=== PATIENT | female | born 1955 | race Two or more races ===

== ENCOUNTER 2018-11-20 14:44 | Inpatient (IN) | payer OTHER ==
[~2018-11-20] VITALS: Ht 160 cm; Wt 88.5 kg
[~2018-11-20 14:44] MED LIST: BENA40TA8 PO; CITA10SO3 PO; GLIP10TA11 PO; PANT40TA2 PO; SUCR1TAB31 PO; TRAM50TA PO; ZOLP10TA2 PO
--- NOTE | 2018-11-20 14:57 | NUR ---
ALTAF DE SANTIAGO VIA [facility]. TO ER BED 12. AAOX4. NO RESP DISTRESS, NO SOB, DENIES CP. CAME IN FOR GLF WITH R HIP AND R LEG PAIN 05/14. AWAITING MD KEENAN
[2018-11-20] MEDS ORDERED: ONDANSETRON HCL/PF 4 MG/2 ML VIAL ONE (15:11)
[2018-11-20] MEDS ORDERED: MORPHINE SULFATE INJ 2 MG/ML DISP.SYRIN ONE ×2 (15:11→20:31)
--- NOTE | 2018-11-20 15:20 | NUR ---
IV ACCESS OBTAIN ON R AC 20G. OLIMPIA DRAWN, TORCH CUTTER AT BEDSIDE.
[2018-11-20 15:24] LABS: BASOPHILS # (AUTO) 0.1 /CMM (0.0-0.2); BASOPHILS % (AUTO) 0.6 % (0.0-2.0); EOSINOPHILS % (AUTO) 1.9 % (0.0-6.0); HEMATOCRIT 41 % (33-45); HEMOGLOBIN 13.9 g/dL (11.5-14.8); LYMPHOCYTES # (AUTO) 2.8 /CMM (0.8-4.8); LYMPHOCYTES % (AUTO) 28.6 % (20.0-44.0); MEAN CORPUSCULAR HGB CONC 34 g/dl (31.0-36.0); MEAN CORPUSCULAR VOLUME 85 fL (82-100); MONOCYTES # (AUTO) 0.5 /CMM (0.1-1.30); MONOCYTES % (AUTO) 5.6 % (2.0-12.0); NEUTROPHILS # (AUTO) 6.2 /CMM (1.8-8.9); NEUTROPHILS % (AUTO) 63.3 % (43.0-81.0); PLATELET COUNT (AUTO) 259 /CMM (150-450); RED BLOOD CELL COUNT(AUTO) 4.81 MIL/uL (4.0-5.2); WHITE BLOOD COUNT (AUTO) 9.8 K/uL (4.3-11.0)
[2018-11-20] MEDS ORDERED: IV NS 0.9% 1,000 ML BAG IV ONE (15:30)
[2018-11-20] MEDS ORDERED: MORPHINE SULFATE INJ 2 MG/ML DISP.SYRIN IV ONE ×5 (15:30→19:00)
[2018-11-20] MEDS ORDERED: ONDANSETRON HCL/PF 4 MG/2 ML VIAL IVP ONE (15:30)
--- NOTE | 2018-11-20 15:30 | NUR ---
CALLED [facility] SENIOR DATA ANALYST PENNY ANTON PAGEMarco A
--- NOTE | 2018-11-20 15:30 | NUR ---
XRAY AT BEDSIDE
[2018-11-20 15:31] LABS: CALCIUM, SERUM 8.8 mg/dL (8.5-10.1); CREATININE 1.1 mg/dL (0.6-1.3); POTASSIUM 3.9 mmol/L (3.5-5.1)
[2018-11-20] MEDS ORDERED: MORPHINE SULFATE INJ 4 MG/ML DISP.SYRIN ONE ×3 (16:16→18:07)
--- NOTE | 2018-11-20 16:20 | NUR ---
REGAL WILL UPDATE IN 45-50 MIN
--- NOTE | 2018-11-20 17:08 | NUR ---
CALL RECEIVED FROM DIMPLE CRAIG BELLHOP SERVICE CAPTAIN TO GET INFORMATION.
--- NOTE | 2018-11-20 19:05 | NUR ---
DAWSON MARLEY (SON) - [phone] CALL FOR UPDATES
--- NOTE | 2018-11-20 19:12 | NUR ---
REPORT GIVEN TO KEN FOR JONI
[2018-11-20] MEDS ORDERED: ESCI10TA PO (20:33)
[2018-11-20] MEDS ORDERED: ASPI-1152 PO (20:33)
[2018-11-20] MEDS ORDERED: EZET10TA14 PO (20:33)
[2018-11-20] MEDS ORDERED: GABA-532 PO (20:33)
[2018-11-20] MEDS ORDERED: SITA100T PO (20:33)
[2018-11-20] MEDS ORDERED: ROSU10TA2 PO (20:33)
[2018-11-20] MEDS ORDERED: LOSA50TA39 PO (20:33)
[2018-11-20] MEDS ORDERED: DULO60CA45 PO (20:33)
[2018-11-20 21:01] LABS: APPEARANCE,URINE Clear (CLEAR); BILIRUBIN,URINE Negative (NEGATIVE); BLOOD, URINE Negative Ery/uL (NEGATIVE); COLOR,URINE Yellow (YELLOW); KETONES,URINE Negative (NEGATIVE); LEUKOCYTE ESTERASE ,URINE Negative (NEGATIVE); NITRITE, URINE Negative (NEGATIVE); PROTEIN,URINE Negative (NEGATIVE); UGLUCOSE Negative (NEGATIVE); UROBILINOGEN,URINE 0.2 EU/dL (0.2)
[2018-11-20 21:50] VITALS: BP 174/91
--- NOTE | 2018-11-20 21:50 | NUR ---
CLIENT EXECUTIVE NOTES RECEIVED PT FROM ER VIA NAHUM. PT A&OX4. FAMILY AT BEDSIDE. PT HAS IV #20G IN LAC S/L. PT HAS A PEREZ IN PLACE. PT C/O FOR R HIP PAIN 05/14. PT ORIENTED TO ROOM AND FLOOR. PLAN OF CARE DISCUSSED WITH PT AND FAMILY. ALL SAFETY PRECAUTIONS TAKEN, BED IN LOW LOCKED POSITION. CALL LIGHT WITH IN REACH. ALL NEEDS ANTICIPATED AND MET. WILL CARRY OUT ADMISSION ORDERS. WILL CONT TO MONITOR.
--- NOTE | 2018-11-20 21:59 | NUR ---
REPORT GIVEN TO GISSELLE ESCOTO RN FOR JONI; PT TRANSPORTED TO 1ST FLOOR VIA ACLS PROTOCOL
[2018-11-20] MEDS ORDERED: DEXTROSE 50%-WATER 50 ML DISP.SYRIN IV PRN (22:00)
[2018-11-20] MEDS: BLOOD SUGAR DIAGNOSTIC 1 EACH STRIP VI SCH (22:14)
[2018-11-20] MEDS: *INSULIN REGULAR(HUMULIN R)HUM 100 UNIT/ML VIAL SQ PRN (22:16)
[2018-11-20] MEDS ORDERED: HYDROMORPHONE INJ 0.5 MG/0.5 ML SYRINGE IV PRN (22:30)
[2018-11-20] MEDS ORDERED: ACETAMINOPHEN 325 MG TABLET PO PRN (22:30)
[2018-11-20] MEDS ORDERED: HYDROMORPHONE 1 MG/1 ML DISP.SYRIN ONE (22:49)
[2018-11-20] MEDS: IV 1/2NS 1000 ML 1,000 ML IV PRN (22:55)
[2018-11-20] MEDS ORDERED: HYDROMORPHONE 1 MG/1 ML DISP.SYRIN IV PRN (23:28)
[2018-11-21] VITALS (12 sets, daily range): BP systolic 135–170; BP diastolic 75–89
[2018-11-21] MEDS: MORPHINE SULFATE INJ 2 MG/ML DISP.SYRIN IV PRN ×2 (01:58→05:26)
--- NOTE | 2018-11-21 06:11 | NUR ---
RN CLOSING NOTES NO SIGNIFICANT CHANGE IN PTS CONDITION OVER SHIFT. PT REQUEST PAIN MEDS SEVERAL TIMES OVERNIGHT. PT KEPT NPO SINCE MIDNIGHT FOR SX; INTRAMEDULLARY NAILING, RIGHT FEMUR. CONSENT(S) SIGNED AND PEROP CHECK LIST COMPLETED. PT KEPT SAFE. ALL NEEDS ANTICIPATED AND MET. WILL ENDORSE TO AM RN.
[2018-11-21 06:34] LABS: BASOPHILS % (AUTO) 0.4 % (0.0-2.0); EOSINOPHILS % (AUTO) 0.3 % (0.0-6.0); HEMATOCRIT 37 % (33-45); HEMOGLOBIN 12.5 g/dL (11.5-14.8); LYMPHOCYTES # (AUTO) 2.8 /CMM (0.8-4.8); LYMPHOCYTES % (AUTO) 25.7 % (20.0-44.0); MEAN CORPUSCULAR HGB CONC 34 g/dl (31.0-36.0); MEAN CORPUSCULAR VOLUME 84 fL (82-100); MONOCYTES # (AUTO) 0.9 /CMM (0.1-1.30); MONOCYTES % (AUTO) 8.5 % (2.0-12.0); NEUTROPHILS # (AUTO) 7.2 /CMM (1.8-8.9); NEUTROPHILS % (AUTO) 65.1 % (43.0-81.0); PLATELET COUNT (AUTO) 258 /CMM (150-450); RED BLOOD CELL COUNT(AUTO) 4.39 MIL/uL (4.0-5.2)
[2018-11-21 06:40] LABS: CALCIUM, SERUM 8.8 mg/dL (8.5-10.1); CREATININE 0.8 mg/dL (0.6-1.3); POTASSIUM 4.1 mmol/L (3.5-5.1)
[2018-11-21] MEDS ORDERED: ALPRAZOLAM 0.25 MG TABLET PO PRN (07:00)
--- NOTE | 2018-11-21 08:00 | NUR ---
MS/RN NOTES RECEIVED PATIENT INSIDE BED ALOC X4 SPEAKS CYMRO MOSTLY, PT ON ROOM AIR SATURATION 94% HAS A PEREZ CATHETER TO GRAVITY WITH YELLOW COLOR URINE, NPO CURRENTLY WILL HAD A HIP SURGERY TODAY. BLOOD SUGAR CHECKED WAS 159MG/DL. PATIENT HAS IV LEFT AC HL INTACT W/O ANY S/S OF INFECTION, PT ON IVF 1/2NS @ 75ML/H. ALL NEEDS ATTENDED COMPLAINED OF PAIN 10/10 IN HIP, BP 159/89 MORPHINE 4MG GIVEN ORDERED, POC DISCUSSED WITH PATIENT, CALL LIGHT IN REACH, BED LOCKED IN LOWEST POSITION, WILL MONITOR CLOSELY.
[2018-11-21] MEDS: MORPHINE SULFATE INJ 4 MG/ML DISP.SYRIN IV PRN ×2 (08:13→20:34)
[2018-11-21] MEDS: BLOOD SUGAR DIAGNOSTIC 1 EACH STRIP VI SCH ×4 (08:17→22:26)
[2018-11-21] MEDS ORDERED: DULOXETINE HCL 30 MG CAPSULE.DR PO SCH (09:00)
[2018-11-21] MEDS: EZETIMIBE 10 MG TABLET PO SCH (09:00)
[2018-11-21] MEDS: GABAPENTIN 100 MG CAPSULE PO SCH ×2 (09:00→16:11)
[2018-11-21] MEDS: ATORVASTATIN 10 MG TABLET PO SCH (09:00)
[2018-11-21] MEDS: glipiZIDE 10 MG TABLET PO SCH (09:00)
[2018-11-21] MEDS: ESCITALOPRAM OXALATE (10 MG) 10 MG TABLET PO SCH (09:00)
[2018-11-21] MEDS: LOSARTAN POTASSIUM 50 MG TABLET PO SCH (09:00)
--- NOTE | 2018-11-21 09:00 | NUR ---
MS RN NOTE DR BARON AT BEDSIDE SON AT BEDSIDE MORPHINE WAS GIVEN 4MG ORDERED. PATIENT TAKEN TO THE O.R. WILL FOLLOW UP.
[2018-11-21] MEDS ORDERED: BUPIVACAINE 0.5 % PF 150 MG/30 ML VIAL ONE (10:03)
[2018-11-21] MEDS ORDERED: BACITRACIN 50000 UNITS/VIAL ONE (10:04)
[2018-11-21] MEDS ORDERED: MIDAZOLAM HCL 2 MG/2ML VIAL ONE (10:18)
[2018-11-21] MEDS ORDERED: FENTANYL PF 250MCG/5ML AMPUL ONE ×2 (10:18→10:19)
[2018-11-21] MEDS ORDERED: FAMOTIDINE/PF INJ 20 MG/2 ML VIAL IV ONE (10:19)
[2018-11-21] MEDS ORDERED: METOCLOPRAMIDE HCL 10 MG/2 ML VIAL ONE (10:19)
[2018-11-21] MEDS ORDERED: ROCURONIUM BROMIDE 50 MG/5 ML ONE (10:20)
--- NOTE | 2018-11-21 11:14 | NUR ---
MS RN NOTE STILL IN OR
[2018-11-21] MEDS ORDERED: FENTANYL PF 100MCG/2ML AMPUL ONE (13:32)
[2018-11-21] MEDS ORDERED: BISACODYL SUPP (10 MG) 10 MG/SUPP.RECT SUPP.RECT RC PRN (14:00)
[2018-11-21 14:06] LABS: BASOPHILS % (AUTO) 0.3 % (0.0-2.0); HEMATOCRIT 36 % (33-45); HEMOGLOBIN 11.8 g/dL (11.5-14.8); LYMPHOCYTES # (AUTO) 2.7 /CMM (0.8-4.8); LYMPHOCYTES % (AUTO) 15.8 % (20.0-44.0); MEAN CORPUSCULAR HGB CONC 33 g/dl (31.0-36.0); MEAN CORPUSCULAR VOLUME 85 fL (82-100); MONOCYTES % (AUTO) 5.9 % (2.0-12.0); NEUTROPHILS # (AUTO) 13.1 /CMM (1.8-8.9); PLATELET COUNT (AUTO) 296 /CMM (150-450); RED BLOOD CELL COUNT(AUTO) 4.19 MIL/uL (4.0-5.2); WHITE BLOOD COUNT (AUTO) 16.9 K/uL (4.3-11.0)
--- NOTE | 2018-11-21 14:26 | NUR ---
MS/RN NOTES RECEIVED PATIENT FROM OR ALERT BUT STILL DROWSY ABLE TO ANSWER QUESTIONS AND FOLLOW COMMANDS. PATIENT IS ON 2L/NC SATURATION OF 94% NO SOB NOTED, NO DISCOMFORT NOTED AT THIS TIME. RIGHT LEG HAS MILY DRESSING IN PLACE ICE PACK IN PLACE SURGERY SITE TENDER TO TOUCH. SKIN WARM AND DRY TO TOUCH CAPILLARY REFILL CHECKED AND WNL, NAIL BED PINK COLOR, ABLE TO WIGGLE TOES. DVT PUMPS IN PLACE, PLACED ON IVF LEFT AC, 1/2 NS @75ML/HR. LUNG SOUNDS CLEAR, BOWL SOUNDS PRESENT. VITAL SIGNS STABLE WILL MONITOR CLOSELY.
[2018-11-21 14:31] LABS: CALCIUM, SERUM 8.1 mg/dL (8.5-10.1); CREATININE 0.9 mg/dL (0.6-1.3); POTASSIUM 4.3 mmol/L (3.5-5.1)
[2018-11-21] MEDS: HYDROCODONE/APAP 5/325MG 1 EACH TABLET PO PRN ×2 (15:17→22:06)
[2018-11-21] MEDS: INSULIN REGULAR, HUMAN 100 UNIT/ML 3 ML VIAL SQ PRN (16:31)
--- NOTE | 2018-11-21 16:40 | NUR ---
DIRECTOR OF MATH NOTE FAMILY AT BEDSIDE ,ALL NEEDS ATTENDED , BLOOD SUGAR 270 MG]\ DL , INTENSIVE SPIROMETER GIVEN INSTRUCTED TO USE , WILL MONITOR
--- NOTE | 2018-11-21 17:18 | NUR ---
MS RN NOTE 2DECHO DONE ORDERED, NOT IN DISTRESS
[2018-11-21] MEDS: CEFAZOLIN 2 GM in IV D5W 50 ML IV SCH (18:28)
[2018-11-21] MEDS: IV 1/2NS 1000 ML 1,000 ML IV PRN (18:47)
--- NOTE | 2018-11-21 18:59 | NUR ---
MS/RN NOTES PATIENT DOES NOT HAVE PAIN AT THIS TIME, FAMILY AT BEDSIDE, PATIENT IS COMFORTABLE AND VITAL SIGNS STABLE. CONTINUE TO MONITOR.
--- NOTE | 2018-11-21 19:40 | NUR ---
RN OPENING NOTES RECEIVED REPORT FROM DAYSHIFT RN. FOUND Pt AWAKE, RESTING IN BED, FAMILY VISITING AT BEDSIDE. NO S/S OF ACUTE DISTRESS OR SOB NOTED. Pt IS A/OX4, VERBAL, ABLE TO MAKE NEEDS KNOWN. IV ACCESS ON LAC #20G, IVF 1/2NS @75ML/HR, INFUSING WELL. RESPIRATIONS EVEN AND UNLABORED. SAFETY MEASURES IN PLACE. BED LOW, LOCKED, HOB ELEVATED, SIDE RAILS UP, CALL LIGHT AND BEDSIDE TABLE WITHIN REACH. WILL CONTINUE TO MONITOR Pt's CONDITION AND SAFETY THROUGHOUT THE NIGHT.
[2018-11-21] MEDS: ONDANSETRON HCL/PF 4 MG/2 ML VIAL IV PRN (20:40)
[2018-11-21] MEDS: *INSULIN REGULAR(HUMULIN R)HUM 100 UNIT/ML VIAL SQ PRN (22:34)
--- NOTE | 2018-11-21 22:37 | NUR ---
Met with patient and family member at bedside. Patient is alert,speaks English and some Mauritian. States she and her are but lives together in a single level dwelling. Prior to hospitalization, she was ambulatory and independent with adl's. Has no DME at home or homehealth reported. She does not want to go SNF, she prefer to return home. Has good family support. She will need homehealth for PT and walker prior D/C. Will coordinate with Dipesh dependency case manager for dc needs. Afterhrs Dipesh/Vidal dependency case manager [phone] Addendum: 11/21/18 at 2237 by KAVITA JIN RN Amended: Links added.
--- NOTE | 2018-11-21 22:40 | NUR ---
RN NOTES HS ACCUCHECK BG 212. ADMINISTERED 4UN OF INSULIN PER SLIDING SCALE. PROVIDED APPLE JUICE AT BEDSIDE.
[2018-11-22] MEDS: ONDANSETRON HCL/PF 4 MG/2 ML VIAL IV PRN ×3 (00:48→09:31)
[2018-11-22] MEDS: MORPHINE SULFATE INJ 4 MG/ML DISP.SYRIN IV PRN ×3 (00:49→22:03)
[2018-11-22] MEDS: HYDROCODONE/APAP 5/325MG 1 EACH TABLET PO PRN (03:09)
[2018-11-22] MEDS: CEFAZOLIN 2 GM in IV D5W 50 ML IV SCH (03:09)
[2018-11-22 04:00] VITALS: BP 139/77
[2018-11-22] MEDS: MORPHINE SULFATE INJ 2 MG/ML DISP.SYRIN IV PRN ×4 (04:25→09:40)
[2018-11-22 06:13] LABS: BASOPHILS # (AUTO) 0.1 /CMM (0.0-0.2); BASOPHILS % (AUTO) 0.4 % (0.0-2.0); HEMATOCRIT 32 % (33-45); HEMOGLOBIN 10.8 g/dL (11.5-14.8); LYMPHOCYTES # (AUTO) 1.8 /CMM (0.8-4.8); LYMPHOCYTES % (AUTO) 13.1 % (20.0-44.0); MEAN CORPUSCULAR HGB CONC 34 g/dl (31.0-36.0); MEAN CORPUSCULAR VOLUME 84 fL (82-100); MONOCYTES # (AUTO) 1.6 /CMM (0.1-1.30); MONOCYTES % (AUTO) 11.7 % (2.0-12.0); NEUTROPHILS # (AUTO) 10.2 /CMM (1.8-8.9); NEUTROPHILS % (AUTO) 74.8 % (43.0-81.0); PLATELET COUNT (AUTO) 262 /CMM (150-450); RED BLOOD CELL COUNT(AUTO) 3.78 MIL/uL (4.0-5.2); WHITE BLOOD COUNT (AUTO) 13.7 K/uL (4.3-11.0)
[2018-11-22 06:17] LABS: CALCIUM, SERUM 8.7 mg/dL (8.5-10.1); CREATININE 0.9 mg/dL (0.6-1.3); POTASSIUM 4.1 mmol/L (3.5-5.1)
[2018-11-22] MEDS: ENOXAPARIN SODIUM 40 MG/0.4 ML DISP.SYRIN SQ SCH (06:50)
--- NOTE | 2018-11-22 06:50 | NUR ---
RN CLOSING NOTES NO SIGNIFICANT CHANGES IN Pt's CONDITION. Pt REMAINS STABLE AT THIS TIME. NO S/S OF ACUTE DISTRESS OR SOB NOTED DURING THE NIGHT. ALL NEEDS MET AND ATTENDED TO. Pt IS CURRENTLY RESTING IN BED. RESPIRATIONS EVEN AND UNLABORED. SAFETY MEASURES IN PLACE. WILL ENDORSE TO DAYSHIFT RN FOR Pt's JONI.
--- NOTE | 2018-11-22 07:00 | NUR ---
MS RN OPENING NOTES PT. FOUND LAYING ON BACK A/OX4, NO SOB OR ACUTE DISTRESS NOTED. ON ROOM AIR. DENIES PAIN AT THIS TIME. PT IS ABLE TO MOVE TOES ON RIGHT FOOT, DENIES NUMBNESS AND/OR TINGLING ON RIGHT FOOT, RIGHT PEDAL PULSES PALPABLE, RIGHT FOOT WARM TO TOUCH. IV SITE ON L AC #20G CLEAN, DRY, INTACT WITH IV FLUIDS RUNNING. PEREZ CATHETER IN PLACE AND DRAINING. INTERMITTENT PUMPS ON. BED LOW, LOCKED, SIDE RAILS UP X2, CALL LIGHT IN REACH, WILL CONTINUE TO MONITOR.
[2018-11-22] MEDS: INSULIN REGULAR, HUMAN 100 UNIT/ML 3 ML VIAL SQ PRN ×3 (07:47→17:45)
[2018-11-22 08:00] VITALS: BP 150/83
[2018-11-22] MEDS: BLOOD SUGAR DIAGNOSTIC 1 EACH STRIP VI SCH ×4 (08:01→21:48)
[2018-11-22] MEDS: LOSARTAN POTASSIUM 50 MG TABLET PO SCH (08:59)
[2018-11-22] MEDS: ATORVASTATIN 10 MG TABLET PO SCH (09:00)
[2018-11-22] MEDS: ESCITALOPRAM OXALATE (10 MG) 10 MG TABLET PO SCH (09:01)
[2018-11-22] MEDS: EZETIMIBE 10 MG TABLET PO SCH (09:01)
[2018-11-22] MEDS: GABAPENTIN 100 MG CAPSULE PO SCH ×2 (09:02→17:35)
[2018-11-22] MEDS: glipiZIDE 10 MG TABLET PO SCH (09:02)
[2018-11-22] MEDS ORDERED: INSULIN GLARGINE, 100 UNIT/ML CARTRIDGE SQ ONE (10:00)
[2018-11-22 16:00] VITALS: BP_SYST 156; BP_SYST 159; BP_DIAS 78
--- NOTE | 2018-11-22 16:06 | NUR ---
MS RN NOTES PEREZ CATHETER IS REMOVED PER ,ORTHO SURGEON OVER 24 HRS S/P SURGERY.,PCP MADE AWARE.PT TOLERATED WELL.
[2018-11-22] MEDS ORDERED: CLONIDINE HCL 0.1 MG TABLET PO PRN (16:30)
[2018-11-22] MEDS: METFORMIN 500 MG TABLET PO SCH (17:35)
--- NOTE | 2018-11-22 17:45 | NUR ---
MS RN NOTES PT HAD MILD URINE OUTPUT,WILL CONTINUE TO MONITOR THE PT
--- NOTE | 2018-11-22 18:55 | NUR ---
MS RN CLOSING NOTES PT IS SITTING ON THE CHAIR AT BEDSIDE,TOLERATING WELL.ON ROOM AIR.NO SOB AND ACUTE DISTRESS NOTED.NO PAIN NOTED FOR NOW.ENDORSED TO ELECTRIC MOTOR WINDER RN FOR JONI.
--- NOTE | 2018-11-22 19:15 | NUR ---
MS/RN INITIAL NOTES RECEIVED PT SITTING IN CHAIR, AT BEDSIDE. A/OX3. ON ROOM AIR, NO SOB NOTED. DENIES PAIN AT THIS TIME. LEFT AC G20 HEPLOCK INTACT AND PATENT. SAFETY MEASURES IN PLACED. CALL LIGHT WITHIN EASY REACH. WILL CONT TO MONITOR
--- NOTE | 2018-11-22 19:42 | NUR ---
MS RN NOTES PT IS REQUESTING AMBIEN HS, ORDERED TAB AMBIEN 5MG HS PRN.NEW ORDERS NOTED AND CARRIED OUT.
[2018-11-22 20:00] VITALS: BP 133/68
[2018-11-22] MEDS ORDERED: ZOLPIDEM TARTRATE 5 MG TABLET PO PRN (20:00)
[2018-11-22] MEDS: *INSULIN REGULAR(HUMULIN R)HUM 100 UNIT/ML VIAL SQ PRN (21:39)
[2018-11-23] MEDS: MORPHINE SULFATE INJ 2 MG/ML DISP.SYRIN IV PRN (01:21)
[2018-11-23 04:00] VITALS: BP 116/53
[2018-11-23] MEDS: MORPHINE SULFATE INJ 4 MG/ML DISP.SYRIN IV PRN ×4 (04:41→16:39)
--- NOTE | 2018-11-23 07:00 | NUR ---
RN AM SHIFT NOTE PATIENT ALERT ORITNED, SPEAKS SOME MACEDONIAN AND EMIRATI. PATIENT COMPLAINING OF PAIN 10/10 RIGHT HIP SURGERY. PATIENT UNDERSTANDS HER CONDITON, IS PARTICIPATING IN CARE. ATE 25% OF BREAKFAST, BLOOD SUGAR ASSESSED AND INSULIN GIVEN. SAFETY PRECAUTIONS IN PLACE. CONTINUE TO MONITOR .
[2018-11-23 07:20] LABS: BASOPHILS % (AUTO) 0.3 % (0.0-2.0); EOSINOPHILS % (AUTO) 0.1 % (0.0-6.0); HEMATOCRIT 28 % (33-45); HEMOGLOBIN 9.6 g/dL (11.5-14.8); LYMPHOCYTES # (AUTO) 2.2 /CMM (0.8-4.8); LYMPHOCYTES % (AUTO) 15.8 % (20.0-44.0); MEAN CORPUSCULAR HGB CONC 35 g/dl (31.0-36.0); MEAN CORPUSCULAR VOLUME 84 fL (82-100); MONOCYTES # (AUTO) 1.5 /CMM (0.1-1.30); MONOCYTES % (AUTO) 10.8 % (2.0-12.0); NEUTROPHILS # (AUTO) 10.2 /CMM (1.8-8.9); PLATELET COUNT (AUTO) 247 /CMM (150-450); RED BLOOD CELL COUNT(AUTO) 3.31 MIL/uL (4.0-5.2)
--- NOTE | 2018-11-23 07:21 | NUR ---
RN NOTES PT IN STABLE CONDITION. NO ACUTE CHANGES THROUGHOUT SHIFT. ALL NEEDS ANTICIPATED. SAFETY MEASURES OBSERVED AT ALL TIMES. ENDORSED TO AM SHIFT RN FOR JONI
[2018-11-23 07:29] LABS: CALCIUM, SERUM 8.7 mg/dL (8.5-10.1); CREATININE 0.9 mg/dL (0.6-1.3)
[2018-11-23] MEDS: BLOOD SUGAR DIAGNOSTIC 1 EACH STRIP VI SCH ×3 (07:50→16:25)
[2018-11-23] MEDS: METFORMIN 500 MG TABLET PO SCH ×2 (08:00→16:20)
[2018-11-23] MEDS: glipiZIDE 10 MG TABLET PO SCH (08:00)
[2018-11-23] MEDS: GABAPENTIN 100 MG CAPSULE PO SCH ×2 (08:00→16:20)
[2018-11-23] MEDS: EZETIMIBE 10 MG TABLET PO SCH (08:00)
[2018-11-23] MEDS: ESCITALOPRAM OXALATE (10 MG) 10 MG TABLET PO SCH (08:00)
[2018-11-23] MEDS: ENOXAPARIN SODIUM 40 MG/0.4 ML DISP.SYRIN SQ SCH (08:01)
[2018-11-23] MEDS ORDERED: LOSARTAN POTASSIUM 50 MG TABLET PO SCH (09:00)
[2018-11-23] MEDS: ATORVASTATIN 10 MG TABLET PO SCH (09:19)
[2018-11-23] MEDS: HYDROCODONE/APAP 5/325MG 1 EACH TABLET PO PRN ×2 (09:42→16:20)
[2018-11-23] MEDS ORDERED: METF-440 PO (10:14)
[2018-11-23] MEDS ORDERED: *INS REG SQ (10:14)
[2018-11-23] MEDS ORDERED: LOSA50TA3 PO (10:14)
[2018-11-23] MEDS ORDERED: INSU100V28 SQ (10:14)
[2018-11-23] MEDS ORDERED: ZOLP5TAB2 PO (10:14)
[2018-11-23] MEDS ORDERED: ENOX40DI SQ (10:14)
[2018-11-23] MEDS ORDERED: HYDR-3972 PO (10:14)
[2018-11-23] MEDS ORDERED: DOCU-141 PO (10:21)
[2018-11-23] MEDS ORDERED: FERR325T23 PO (10:21)
[2018-11-23 12:00] VITALS: BP 112/68
[2018-11-23] MEDS: INSULIN REGULAR, HUMAN 100 UNIT/ML 3 ML VIAL SQ PRN ×2 (12:12→17:49)
[2018-11-23] MEDS: ONDANSETRON HCL/PF 4 MG/2 ML VIAL IV PRN (16:39)
--- NOTE | 2018-11-23 17:43 | NUR ---
UTILITY TENDER CARDING NOTE PATIENT OK FOR D/C TO [facility]IV[facility] PER MD ORDER. CASE MANAGEMENT ARRANGED TRANSPORTATION WITH MOTORIZED WHEELCHAIR. PATIENT STABLE FOR D/C FACILIYT AWARE PATIENT IS COMING. IV REMOVED, OSTOMY BAG EMPTIED AND CHANGED, PATIENT REFUSED PICTURES AT THIS TIME, IV REMOVED AND COVERED. PM MEDICATION WAS NOT GIVEN DUE TO TRANSPORT TO [facility]ED [facility]. BELONGINGS LIST CHECKED AND SIGNED. Addendum: 11/23/18 at 1746 by FELISHA COLLAZO RN WRONG PATIENT
--- NOTE | 2018-11-23 19:05 | NUR ---
ESCORT SERVICE ATTENDANT NOTE PATIENT OK FOR D/C PER MD ORDER. IV REMOVED, MEDICATION ORDERS GIVEN TO PATIENT AND FAMILY . PATIENT VITALS WNL UPON DISCHARGE. FAMILY AT BEDSIDE. SO S/S OF BLEEDING, NO S/S OF HYPOVOLEMIA, PAIN NOTED, BUT MANAGED WITH PAIN MEDICATION. MD GAVE NORCO UPON DISCHARGE. INSURANCE CALLED TO VERIFY NEED FOR WHEELCHAIR, RN FAXED OVER PT NOTES TO INSURANCE. FAMILY AWARE. CASE MANAGEMENT CALLED AND MESSAGE LEFT.
== END 2018-11-23 19:37 | disposition home health service (06) | DRG 308 ==
LOC: ER 14:52 → MEDSG1 20:20 → TELE1 20:55 → MEDSG1 21:22
PROVIDERS: ADMIT Internal Medicine; ATTEND Internal Medicine
PROC: 0QS806Z Reposition Right Femoral Shaft with Intramedullary Internal Fixation Device, Open Approach (ICD-10-PCS; principal; 2018-11-21)
DX: S72.301A Unspecified fracture of shaft of right femur, initial encounter for closed fracture (principal); D64.9 Anemia, unspecified; E11.9 Type 2 diabetes mellitus without complications; E78.5 Hyperlipidemia, unspecified; F32.9 Major depressive disorder, single episode, unspecified; I10 Essential (primary) hypertension; Z79.82 Long term (current) use of aspirin; Z79.84 Long term (current) use of oral hypoglycemic drugs; W19.XXXA Unspecified fall, initial encounter; Y93.89 Activity, other specified; Y92.009 Unspecified place in unspecified non-institutional (private) residence as the place of occurrence of the external cause
CPT/HCPCS: 36415; 71045-TC; 73502; 73552; 73560-TC; 73700-TC; 80048-TC; 80061-TC; 81000-TC; 82962-TC; 85025-TC; 85730-TC; 86850-TC; 86921-TC; 87081-TC; 93307-TC; 97110-TC; 97530-TC; A6209; A6402; C1713; G0378; J0690; J1170; J1650; J1815; J2250; J2270; J2405; J2704; J2710; J2765; J3010; J3490; J7030; J7060

== ENCOUNTER 2018-11-25 13:14 | Emergency (ER) | payer OTHER ==
[~2018-11-25] VITALS: Ht 160 cm; Wt 88.9 kg
[~2018-11-25 13:14] MED LIST changes: +*INS REG SQ; -BENA40TA8 PO; -CITA10SO3 PO; +DOCU-141 PO; +ENOX40DI SQ; +ESCI10TA PO; +EZET10TA14 PO; +FERR325T23 PO; +GABA-532 PO; +HYDR-3972 PO; +INSU100V28 SQ; +LOSA50TA3 PO; +METF-440 PO; +ROSU10TA2 PO; +SITA100T PO; +ZOLP5TAB2 PO
[2018-11-25] MEDS ORDERED: MORPHINE SULFATE INJ 2 MG/ML DISP.SYRIN IV ONE (13:30)
[2018-11-25] MEDS ORDERED: ONDANSETRON HCL/PF 4 MG/2 ML VIAL IVP ONE (13:30)
[2018-11-25] MEDS ORDERED: IV NS 0.9% 500 ML BAG IV ONE (13:30)
[2018-11-25] MEDS ORDERED: ONDANSETRON HCL/PF 4 MG/2 ML VIAL ONE (13:36)
[2018-11-25] MEDS ORDERED: MORPHINE SULFATE INJ 4 MG/ML DISP.SYRIN ONE (13:36)
[2018-11-25 13:54] LABS: BASOPHILS # (AUTO) 0.1 /CMM (0.0-0.2); BASOPHILS % (AUTO) 0.8 % (0.0-2.0); EOSINOPHILS % (AUTO) 0.6 % (0.0-6.0); HEMATOCRIT 26 % (33-45); HEMOGLOBIN 8.7 g/dL (11.5-14.8); LYMPHOCYTES # (AUTO) 1.6 /CMM (0.8-4.8); LYMPHOCYTES % (AUTO) 17.7 % (20.0-44.0); MEAN CORPUSCULAR HGB CONC 34 g/dl (31.0-36.0); MEAN CORPUSCULAR VOLUME 85 fL (82-100); MONOCYTES # (AUTO) 0.9 /CMM (0.1-1.30); MONOCYTES % (AUTO) 9.7 % (2.0-12.0); NEUTROPHILS # (AUTO) 6.4 /CMM (1.8-8.9); NEUTROPHILS % (AUTO) 71.2 % (43.0-81.0); PLATELET COUNT (AUTO) 308 /CMM (150-450); RED BLOOD CELL COUNT(AUTO) 3.05 MIL/uL (4.0-5.2)
--- NOTE | 2018-11-25 13:58 | NUR ---
patient presented to the ER from home, [facility]IBRA GLF, c/o right arm and wrist pain. On room air, breathing evenly and unlabored. Seen by MD. kept comfortable, will continue to monitor. IV access initiated.
[2018-11-25 14:00] LABS: CALCIUM, SERUM 8.4 mg/dL (8.5-10.1); CARBON DIOXIDE 27 mmol/L (21-32); CHLORIDE 102 mmol/L (98-107); CREATININE 0.8 mg/dL (0.6-1.3); GLUCOSE 181 mg/dL (74-106); POTASSIUM 3.5 mmol/L (3.5-5.1); SODIUM SERUM 138 mmol/L (136-145); UREA NITROGEN, BLOOD 18 mg/dL (7-18)
[2018-11-25] MEDS ORDERED: HYDROCODONE/APAP 5/325MG 1 EACH TABLET PO ONE ×2 (14:30→19:30)
--- NOTE | 2018-11-25 14:30 | NUR ---
WARP CHANGER CALLED FOR EVAL REGARDING ABANDONEMENT BY SPOUSE PER DR DAVISON
[2018-11-25] MEDS ORDERED: HYDROCODONE/APAP 5/325MG 1 EACH TABLET ONE ×2 (14:36→19:17)
--- NOTE | 2018-11-25 15:00 | NUR ---
CALLED DR BUTTERFIELD, ON THE PHONE WITH DR DAVISON.
--- NOTE | 2018-11-25 16:19 | NUR ---
received a call from Inna corrections caseworker from [facility], and report given. per Inna she will call back once theres an accepting facility.
--- NOTE | 2018-11-25 16:20 | NUR ---
All clinicals faxed to Brittaney ([facility] bottle caser).
--- NOTE | 2018-11-25 18:21 | NUR ---
[facility] er [phone] room 6b, [facility] will be here at 8pm for pickle pumper . Report given to Sreekanth DUKES for yan.
--- NOTE | 2018-11-25 19:10 | NUR ---
RECEIVED REPORT FROM ROSELINE DONALD FOR JONI
--- NOTE | 2018-11-25 20:16 | NUR ---
AMBULANCE ETA 10 MINUTES
--- NOTE | 2018-11-25 20:38 | NUR ---
IV removed. Catheter intact and site benign. Pressure and 4x4 applied to site. No bleeding noted. transport at bedside report given to emt.
[2018-11-25 20:39] VITALS: BP 133/79
== END 2018-11-25 20:42 ==
LOC: ER 13:18
DX: S52.571A Other intraarticular fracture of lower end of right radius, initial encounter for closed fracture (principal); S52.614A Nondisplaced fracture of right ulna styloid process, initial encounter for closed fracture; I10 Essential (primary) hypertension; E11.9 Type 2 diabetes mellitus without complications; M81.0 Age-related osteoporosis without current pathological fracture; Z98.890 Other specified postprocedural states; Z60.2 Problems related to living alone; Z79.4 Long term (current) use of insulin; Z79.84 Long term (current) use of oral hypoglycemic drugs; Z79.899 Other long term (current) drug therapy; Z79.82 Long term (current) use of aspirin; W20.8XXA Other cause of strike by thrown, projected or falling object, initial encounter; Y93.89 Activity, other specified; Y92.89 Other specified places as the place of occurrence of the external cause; Y99.8 Other external cause status
CPT/HCPCS: 29125; 36415; 73080; 73110; 73551; 80048; 84484; 85025; 96374; 96375; 99285; J2270; J2405; J7040; J7060; 73552